=== PATIENT | female | born 1960 | race Caucasian/White ===

== ENCOUNTER 2023-11-03 19:46 | Emergency (ER) | payer OTHER, SELFPAY ==
[2023-11-03 20:06] VITALS: BP 135/72; PULSE 66; RESP 16; TEMP 37.1; O2SAT 100
--- NOTE | 2023-11-03 20:28 | ED.SKABFB ---
HPI - Skin/Abscess/Foreign Bdy General Chief complaint: Skin/Abscess/Foreign Body Stated complaint: Cat Scratch Time Seen by Provider: 11/03/23 20:28 Source: patient Mode of arrival: ambulatory Limitations: no limitations History of Present Illness HPI narrative: 63-year-old female presented for complaint of a cat bite to the left hand sustained at 7:00 p.m. This is her domestic cat which she states is up-to-date on vaccinations. She states she picked it up and it hissed then bit her, now has a puncture wound to thumb, and 2 open areas to hand. denies significant amount of bleeding, swelling, redness or pain , denies numbness, tingling, weakness of the fingers or hand. She irrigated the site with antibiotic soap bending roll hand. Unsure last tetanus. Related Data Home Medications Medication Instructions Recorded Confirmed losartan 50 mg tablet 50 mg PO DAILY 11/03/23 11/03/23 pantoprazole 40 mg tablet,delayed 40 mg PO DAILY 11/03/23 11/03/23 release valacyclovir 1 gram tablet 1,000 mg PO DAILY 11/03/23 11/03/23 Allergies Allergy/AdvReac Type Severity Reaction Status Date / Time No Known Allergies Allergy Verified 11/03/23 20:31 Review of Systems Review of Systems: CONSTITUTIONAL: Denies body aches, fever, chills, or sweats. EYES: Denies visual changes, redness, or discharge. ENT: Denies rhinorrhea, congestion CARDIOVASCULAR: Denies chest pain, palpitations, or edema. RESPIRATORY: Denies cough or dyspnea. GASTROINTESTINAL: Denies abdominal pain, nausea, vomiting, or diarrhea. SKIN: cat bite left hand MUSCULOSKELETAL: Denies back pain, joint pain, or myalgia. NEUROLOGIC: Denies headache, numbness, tingling, or weakness. PMFSH Comments At time of signature, I have reviewed and agree with nursing past medical, surgical, social and family history unless otherwise noted. Please see nursing chart for further information. There is no relevant family history pertinent to the presenting complaint Exam Narrative: GENERAL: Well-appearing EYES: conjunctivae clear, and EOMI. ENT: Mucous membranes moist. Oropharynx without edema, erythema or lesions. NECK: Supple. No lymphadenopathy CHEST: Clear to auscultation. HEART: Regular rate and rhythm. SKIN: Warm, dry. Puncture site to left hand 1st metacarpal area, 2 linear open wounds to the dorsal aspect of the hand 1 cm in length, minimal swelling to the distal wound, no erythema, or active drainage. Hand CMS intact. NEURO: Alert and oriented x3. Course Course Emergency Course: Patient is aware of diagnosis, understands and agrees to treatment plan. Anticipatory guidance given. Patient agrees to follow-up as directed and is aware of reasons to seek care at the emergency department. Portions of this record may have been created with voice recognition software Level of Care: Express Care Visit Vital Signs Vital signs: Vital Signs Temperature 98.8 F 11/03/23 20:06 Pulse Rate 66 11/03/23 20:06 Respiratory Rate 16 11/03/23 20:06 Blood Pressure 135/72 11/03/23 20:06 Pulse Oximetry 100 11/03/23 20:06 Oxygen Delivery Room Air 11/03/23 20:06 Temperature 98.8 F 11/03/23 20:06 Pulse Rate 66 11/03/23 20:06 Respiratory Rate 16 11/03/23 20:06 Blood Pressure 135/72 11/03/23 20:06 Pulse Oximetry 100 11/03/23 20:06 Oxygen Delivery Room Air 11/03/23 20:06 Reviewed Procedures Laceration left hand: Date: 11/03/23 Size (cm): 1 Description: linear and clean Depth: simple, single layer Pre-repair: irrigated (100mL) ====== Skin Level ====== Skin layer closed with: steri strips ====== Subcutaneous Layer ====== ====== Muscle Layer ====== ====== Tendon Layer ====== Dressing: The procedure and its alternatives were reviewed with patient. Risks were reviewed with patient including infection and damage to nearby structures. Patient provided verbal informe
[2023-11-03] MEDS: TETANUS,DIPHTHERIA,AC PERTUSSIS ADULT (0.5 ML) BOOSTRIX IM (20:33)
== END 2023-11-03 20:47 | disposition home or self-care (01) ==
PROVIDERS: Emergency Provider Nurse Practitioner Family
DX: S61.432A Puncture wound without foreign body of left hand, initial encounter (principal); S61.402A Unspecified open wound of left hand, initial encounter; W55.01XA Bitten by cat, initial encounter; Z23 Encounter for immunization; I10 Essential (primary) hypertension; K21.9 Gastro-esophageal reflux disease without esophagitis
CPT/HCPCS: 90471; 90715; 99203; G0463

== ENCOUNTER 2023-11-04 22:17 | Emergency (ER) | payer OTHER, SELFPAY ==
[2023-11-04 22:34] VITALS: BP 150/79; PULSE 77; RESP 20; TEMP 36.4; O2SAT 99
== END 2023-11-05 01:42 | disposition left against medical advice (07) ==
LOC: ANHED 11-05 00:25
DX: T14.8XXA Other injury of unspecified body region, initial encounter (principal); W55.01XA Bitten by cat, initial encounter
CPT/HCPCS: 99199